=== PATIENT | female | born 1990 | race Caucasian/White ===

== ENCOUNTER 2020-05-31 17:18 | Emergency (ER) | payer MEDICAID ==
--- NOTE | 2020-05-31 18:02 | ED Physician Documentation ---
PD HPI CHEST PAIN - Stated complaint Stated Complaint: SOA - Chief complaint Chief Complaint: Resp - History obtained from History obtained from: Patient - Additional information Additional information: 30-year-old woman with history of anemia presents with shortness of breath and chest tightness that is been going on for about a week. It is exertional. Central chest tightness that is nonradiating. It is not not associate with pedal edema or calf pain. She says no possibility of . No cough. She smokes only very occasionally, maybe a cigarette a week. No personal history of heart or lung problems. Her parents are alive and well nearing 60 years old. Review of Systems Ten Systems: 10 systems reviewed and negative Cardiac: reports: Chest pain / pressure. denies: Palpitations Respiratory: reports: Dyspnea. denies: Cough PD PAST MEDICAL HISTORY - Past Medical History Past Medical History: Yes Other Past Medical History: anemia - Present Medications Home Medications: Ambulatory Orders Medication Instructions Recorded Confirmed Albuterol Sulf [Ventolin Hfa 1 - 2 puffs INH Q4HR PRN #1 inhaler 05/31/20 Inhaler] Amoxicillin 2 tab PO TID #60 capsule 05/31/20 - Allergies Allergies/Adverse Reactions: Allergies Allergy/AdvReac Type Severity Reaction Status Date / Time No Known Drug Allergies Allergy Verified 05/31/20 17:43 - Social History Smoking Status: Current some day smoker Does the pt drink ETOH?: No Does the pt have substance abuse?: No PD ED PE NORMAL - Vitals Vital signs reviewed: Yes - General General: Alert and oriented X 3, Other (Occasionally tearful but easily redirectable) - HEENT HEENT: PERRL, EOMI - Neck Neck: Supple, no meningeal sign, No bony TTP - Cardiac Cardiac: Other (Mild regular tachycardia without murmur) - Respiratory Respiratory: No respiratory distress, Clear bilaterally - Abdomen Abdomen: Soft, Non tender - Back Back: No CVA TTP, No spinal TTP - Derm Derm: Normal color, Warm and dry - Extremities Extremities: No edema, No calf tenderness / cord - Neuro Neuro: Alert and oriented X 3, Normal speech Results - Vitals Vitals: Vital Signs - 24 hr 05/31/20 17:42 Temperature 36.5 C Heart Rate 111 H Respiratory 22 Rate Blood Pressure 140/86 H O2 Saturation 100 Oxygen O2 Source Room air - EKG (time done) 1815 Rate: Rate (enter#) (118) Rhythm: Sinus tachycardia [place]: Normal Intervals: Normal MN QRS: Normal Ischemia: Non specific changes. No: ST elevation c/w ischemia, ST elevation c/w repol Computer interpretation: Agree with computer - Labs Labs: Laboratory Tests 05/31/20 05/31/20 05/31/20 18:05 18:05 18:05 WBC 10.3 RBC 4.27 Hgb 13.8 Hct 39.9 MCV 93.4 MCH 32.3 H MCHC 34.6 RDW 11.4 L Plt Count 285 MPV 10.4 Neut # (Auto) 7.7 H Lymph # (Auto) 2.1 Williams # (Auto) 0.3 Eos # (Auto) 0.1 Baso # (Auto) 0.0 Absolute Nucleated RBC 0.00 Nucleated RBC % 0.0 D-Dimer 240.4 Sodium 138 Potassium 3.1 L Chloride 103 Carbon Dioxide 22 Anion Gap 13.0 BUN 13 Creatinine 0.7 Estimated GFR (MDRD) 98 Glucose 110 H Calcium 9.4 Total Bilirubin 0.5 AST 12 ALT 17 Alkaline Phosphatase 53 Troponin I High Sens B-Natriuretic Peptide Total Protein 8.5 H Albumin 5.0 Globulin 3.5 Albumin/Globulin Ratio 1.4 Lipase 48 Serum HCG, Qual Urine Color Urine Clarity Urine pH Ur Specific [place] Urine Protein Urine Glucose (UA) Urine Ketones Urine Occult Blood Urine Nitrite Urine Bilirubin Urine Urobilinogen Ur Leukocyte Esterase Urine RBC Urine WBC Ur Squamous Epith Cells Urine Bacteria Ur Microscopic Review Urine Culture Comments Urine Opiates Screen Ur Oxycodone Screen Urine Methadone Screen Ur Propoxyphene Screen Ur Barbiturates Screen Ur Tricyclics Screen Ur Phencyclidine Scrn Ur Amphetamine Screen U Methamphetamines Scrn U Benzodiazepines Scrn Urine Cocaine Screen U Cannabinoids Screen 05/31/20 05/31/20 05/31/20 18:05 18:05 18:05 WBC RBC Hgb Hct MCV MCH MCHC RDW Plt Count MPV Neut # (Auto) Lymph # (Auto) Williams # (Auto) Eos # (Auto) Baso # (Auto) Absolute Nucleated RBC Nucleated RBC % D-Dimer Sodium Potassium Chloride Carbon Dioxide Anion Gap BUN Creatinine Estimated GFR (MDRD) Glucose Calcium Total Bilirubin AST ALT Alkaline Phosphatase Troponin I High Sens < 2.3 L B-Natriuretic Peptide 22 Total Protein Albumin Globulin Albumin/Globulin Ratio Lipase Serum HCG, Qual NEGATIVE Urine Color Urine Clarity Urine pH Ur Specific [place] Urine Protein Urine Glucose (UA) Urine Ketones Urine Occult Blood Urine Nitrite Urine Bilirubin Urine Urobilinogen Ur Leukocyte Esterase Urine RBC Urine WBC Ur Squamous Epith Cells Urine Bacteria Ur Microscopic Review Urine Culture Comments Urine Opiates Screen Ur Oxycodone Screen Urine Methadone Screen Ur Propoxyphene Screen Ur Barbiturates Screen Ur Tricyclics Screen Ur Phencyclidine Scrn Ur Amphetamine Screen U Methamphetamines Scrn U Benzodiazepines Scrn Urine Cocaine Screen U Cannabinoids Screen 05/31/20 18:05 WBC RBC Hgb Hct MCV MCH MCHC RDW Plt Count MPV Neut # (Auto) Lymph # (Auto) Williams # (Auto) Eos # (Auto) Baso # (Auto) Absolute Nucleated RBC Nucleated RBC % D-Dimer Sodium Potassium Chloride Carbon Dioxide Anion Gap BUN Creatinine Estimated GFR (MDRD) Glucose Calcium Total Bilirubin AST ALT Alkaline Phosphatase Troponin I High Sens B-Natriuretic Peptide Total Protein Albumin Globulin Albumin/Globulin Ratio Lipase Serum HCG, Qual Urine Color YELLOW Urine Clarity CLEAR Urine pH 6.0 Ur Specific [place] <=1.005 Urine Protein NEGATIVE Urine Glucose (UA) NEGATIVE Urine Ketones NEGATIVE Urine Occult Blood TRACE-INTA Urine Nitrite NEGATIVE Urine Bilirubin NEGATIVE Urine Urobilinogen 0.2 (NORMAL) Ur Leukocyte Esterase SMALL H Urine RBC 0-5 Urine WBC 6-10 H Ur Squamous Epith Cells RARE Squamous Urine Bacteria Rare Ur Microscopic Review INDICATED Urine Culture Comments INDICATED Urine Opiates Screen NEGATIVE Ur Oxycodone Screen NEGATIVE Urine Methadone Screen NEGATIVE Ur Propoxyphene Screen NEGATIVE Ur Barbiturates Screen NEGATIVE Ur Tricyclics Screen NEGATIVE Ur Phencyclidine Scrn NEGATIVE Ur Amphetamine Screen NEGATIVE U Methamphetamines Scrn NEGATIVE U Benzodiazepines Scrn NEGATIVE Urine Cocaine Screen NEGATIVE U Cannabinoids Screen NEGATIVE PD MEDICAL DECISION MAKING - ED course ED course: 30-year-old woman presents with about a weeks worth of shortness of breath and chest pain. Examination is unremarkable. Troponin and D-dimer negative. EKG nonischemic. She is a little anxious. Chest x-ray showing mild right lower lung pulmonary radiopacities. Will treat as infection. Departure - Departure Disposition: 01 Home, Self Care Clinical Impression: Chest pain Qualifiers: Chest pain type: unspecified Qualified Code(s): R07.9 - Chest pain, unspecified Pneumonia Qualifiers: Pneumonia type: due to unspecified organism Laterality: right Lung location: lower lobe of lung Qualified Code(s): J18.9 - Pneumonia, unspecified organism Condition: Good Record reviewed to determine appropriate education?: Yes Instructions: Pneumonia Dc Prescriptions: Albuterol Sulf [Ventolin Hfa Inhaler] 1 - 2 puffs INH Q4HR PRN #1 inhaler PRN Reason: Shortness Of Air/Wheezing Amoxicillin 2 tab PO TID #60 capsule Comments: You have a small right-sided pneumonia on the x-ray. For that we are prescribing some antibiotics. Return if worsening or if new symptoms develop. You should probably have a repeat chest x-ray with your primary care physician in maybe 4 to 6 weeks to make sure that the pneumonia has completely resolved.
[2020-05-31 18:21] LABS: BASOPHILS % (AUTO) 0.3 %; EOSINOPHILS # (AUTO) 0.1 10^3/uL (0.0-0.7); EOSINOPHILS % (AUTO) 0.8 %; HGB - HEMOGLOBIN 13.8 g/dL (12.0-16.0); LYMPHOCYTES # (AUTO) 2.1 10^3/uL (1.5-3.5); LYMPHOCYTES % (AUTO) 20.8 %; MEAN CORPUSCULAR HEMOGLOBIN 32.3 pg (27.0-31.0); MEAN CORPUSCULAR HGB CONC 34.6 g/dL (32.0-36.0); MEAN CORPUSCULAR VOLUME 93.4 fL (81.0-99.0); MEAN PLATELET VOLUME 10.4 fL (7.9-10.8); MONOCYTES # (AUTO) 0.3 10^3/uL (0.0-1.0); NEUTROPHILS # (AUTO) 7.7 10^3/uL (1.5-6.6); NEUTROPHILS % (AUTO) 74.8 %; PLT - PLATELET COUNT 285 10^3/uL (130-450); RED BLOOD COUNT 4.27 10^6/uL (4.20-5.40); RED CELL DISTRIBUTION WIDTH 11.4 % (12.0-15.0); WHITE BLOOD COUNT 10.3 x10^3/uL (4.8-10.8)
[2020-05-31 18:22] LABS: MUDS CUTOFF CONCENTRATIONS CUTOFF CONC BELOW:
[2020-05-31 18:25] LABS: BILIRUBIN,URINE NEGATIVE (NEGATIVE); GLUCOSE, URINE (UA) NEGATIVE (NEGATIVE); KETONES,URINE (UA) NEGATIVE (NEGATIVE); LEUKOCYTE ESTERASE, URINE SMALL (NEGATIVE); NITRITE,URINE NEGATIVE (NEGATIVE); OCCULT BLOOD,URINE TRACE-INTA (NEGATIVE); PROTEIN,URINE NEGATIVE (NEGATIVE); UROBILINOGEN,URINE 0.2 (NORMAL) E.U./dL (NORMAL)
[2020-05-31 18:36] LABS: BACTERIA,URINE Rare /HPF (None Seen); CLARITY,URINE CLEAR (CLEAR); RBC,URINE 0-5 /HPF (0-5); SQUAMOUS EPITHELIAL CELL,UR RARE Squamous (<= Few)
[2020-05-31 18:38] LABS: ALBUMIN/GLOBULIN RATIO 1.4 (1.0-2.2); BILIRUBIN,TOTAL 0.5 mg/dL (0.2-1.0); CALCIUM 9.4 mg/dL (8.5-10.3); CREATININE 0.7 mg/dL (0.4-1.0); TOTAL PROTEIN 8.5 g/dL (6.7-8.2)
[2020-05-31 18:43] LABS: AMPHETAMINE SCREEN,URINE NEGATIVE (NEGATIVE); BENZODIAZEPINES SCREEN, URINE NEGATIVE (NEGATIVE); COCAINE SCREEN URINE NEGATIVE (NEGATIVE); METHADONE SCREEN, URINE NEGATIVE (NEGATIVE); METHAMPHETAMINES SCREEN, URINE NEGATIVE (NEGATIVE); OPIATE SCREEN, URINE NEGATIVE (NEGATIVE); OXYCODONE SCREEN, URINE NEGATIVE (NEGATIVE); PROPOXYPHENE SCREEN, URINE NEGATIVE (NEGATIVE); TRICYCLIC ANTIDEPRESSANT,URINE NEGATIVE (NEGATIVE)
[2020-05-31 18:59] LABS: HCG,QUALITATIVE BLOOD NEGATIVE
--- NOTE | 2020-05-31 19:10 | XRAY Report ---
PROCEDURE: Chest 2 View X-Ray INDICATIONS: chest pain TECHNIQUE: 2 view(s) of the chest. COMPARISON: None. FINDINGS: Surgical changes and devices: None. Lungs and pleura: Trace airspace opacities are present in the medial right lung base. The lungs are o therwise clear. No pleural effusion or pneumothorax. Mediastinum: Mediastinal contours are normal. Heart size is normal. Bones and chest wall: No suspicious bony abnormalities. Soft tissues appear unremarkable. IMPRESSION: Mild right lower lung pulmonary radiopacities. Differential considerations include aspir ation and infection. Short interval follow-up recommended to ensure resolution of this finding and ex clude underlying pulmonary pathology. Reviewed by: Marina Rodriguez MD on 05/31/2020 7:09 PM PST Approved by: Marina Rodriguez MD on 05/31/2020 7:09 PM PST Station ID: [id number]
[2020-05-31 19:32] VITALS: BP 119/74
== END 2020-05-31 19:34 | disposition home or self-care (01) ==
LOC: ED 17:18
DX: J18.9 Pneumonia, unspecified organism (principal); R07.89 Other chest pain; R00.0 Tachycardia, unspecified; F17.210 Nicotine dependence, cigarettes, uncomplicated
CPT/HCPCS: 36415; 80053; 80306; 81001; 81003; 83690; 83880; 84484; 84702; 84703; 85025; 85379; 87086; 93005; 99284; 99285

== ENCOUNTER 2020-10-07 14:05 | Emergency (ER) | payer MEDICAID ==
--- OUTSIDE RECORDS SUMMARY | 2020-10-07 14:09 | EXTERNAL MEDICAL SUMMARY RPT | Continuity of Care Document ---
:1990 Demographics Phone Unavailable Preferred Language Unknown Marital Status Unknown Faith Affiliation Unknown Race Unknown Ethnic Group Unknown Author Organization [facility] Address [address] [place] [address] Phone Social History date description facility [phone]
--- OUTSIDE RECORDS SUMMARY | 2020-10-07 14:34 | EXTERNAL MEDICAL SUMMARY RPT | Continuity of Care Document ---
:1990 Demographics Phone Unavailable Preferred Language Unknown Marital Status Unknown Christianity Affiliation Unknown Race Unknown Ethnic Group Unknown Author Organization [facility] Address [address] [place] [address] Phone Social History date description facility [phone]
[2020-10-07] MEDS ORDERED: LORazepam 1 MG TABLET PO STA (16:14)
--- NOTE | 2020-10-07 16:17 | ED Physician Documentation ---
History of Present Illness - Stated complaint Stated Complaint: CHEST PX/SOA/ANXIETY - Chief complaint Chief Complaint: Resp - Additonal information Additional information: 30-year-old female presents emergency department for evaluation of right-sided chest pain. She reports that every time she breathes and she feels a stabbing pain in her right chest. She states that this pain is causing her to be anxious and worried. She is concerned because in May 2020 she was diagnosed with pneumonia in the right lung and ever since then does not feel like her lung has been normal. In point she denies any cough or fevers. No congestion. She is a non-smoker. No history of diabetes or hypertension. Following her May ER visit she was seen at an ER in [place] for right-sided chest pain and was told that it was due to anxiety and she was prescribed a limited amount of Ativan. 3 days ago she was working a lot outside and with her kids and that is when this chest pain began to get worse she wonders if she may have overdid it though she denies any inciting events. Pt has Mirena IUD in place, no unilateral leg swelling, calf pain, hx of DVT or cancer. Review of Systems Constitutional: denies: Fever, Chills Eyes: reports: Reviewed and negative Ears: reports: Reviewed and negative Nose: reports: Reviewed and negative Throat: reports: Reviewed and negative Cardiac: reports: Chest pain / pressure, Palpitations. denies: Pedal edema, Calf pain Respiratory: denies: Dyspnea, Cough GI: reports: Reviewed and negative : reports: Reviewed and negative Skin: reports: Reviewed and negative PD PAST MEDICAL HISTORY - Past Medical History Past Medical History: Yes Psych: Anxiety - Past Surgical History Past Surgical History: Yes - Present Medications Home Medications: Ambulatory Orders Medication Instructions Recorded Confirmed Albuterol Sulf [Ventolin Hfa 1 - 2 puffs INH Q4HR PRN #1 inhaler 05/31/20 10/07/20 Inhaler] Azithromycin [Zithromax] 0 mg PO DAILY #6 tablet 10/07/20 LORazepam [Ativan] 1 tab Q6H PRN 10/07/20 10/07/20 - Allergies Allergies/Adverse Reactions: Allergies Allergy/AdvReac Type Severity Reaction Status Date / Time No Known Drug Allergies Allergy Verified 10/07/20 14:24 - Social History Does the pt smoke?: No Smoking Status: Never smoker Does the pt drink ETOH?: No Does the pt have substance abuse?: No PD ED PE EXPANDED - General General: Alert, Anxious - Cardiac Cardiac: Tachy, Radial strong equal, Cap refill < 2 sec. No: Murmur Present - Respiratory Respiratory: Clear to ausultation yaya. No: Distress, Labored - Abdomen Abdomen: Normal Bowel sounds. No: Tender to palpation - Neuro Neuro: Alert and Oriented X 3, CNII-XII intact - GCS Eye Opening: Spontaneous Motor: Obeys Commands Verbal: Oriented Total: 15 Results - Vitals Vitals: Vital Signs - 24 hr 10/07/20 14:24 Temperature 36.6 C Heart Rate 125 H Respiratory 16 Rate Blood Pressure 149/98 H O2 Saturation 100 Oxygen O2 Source Room air - EKG (time done) 1429 Rate: Rate (enter#) (92) Rhythm: NSR Felt: Normal Intervals: No: Normal MO (short MO) Ischemia: ST elevation c/w repol Compare to prior EKG: Unchanged from prior EKG Computer interpretation: Agree with computer - Labs Labs: Laboratory Tests 10/07/20 10/07/20 10/07/20 16:15 16:15 16:15 WBC 12.9 H RBC 4.45 Hgb 13.7 Hct 41.9 MCV 94.2 MCH 30.8 MCHC 32.7 RDW 11.6 L Plt Count 327 MPV 10.1 Neut # (Auto) 11.1 H Lymph # (Auto) 1.3 L Esmeralda # (Auto) 0.3 Eos # (Auto) 0.1 Baso # (Auto) 0.1 Absolute Nucleated RBC 0.00 Nucleated RBC % 0.0 D-Dimer Sodium 138 Potassium 3.6 Chloride 103 Carbon Dioxide 22 Anion Gap 13.0 BUN 10 Creatinine 0.7 Estimated GFR (MDRD) 98 Glucose 103 H Calcium 9.6 Troponin I High Sens < 2.3 L 10/07/20 16:15 WBC RBC Hgb Hct MCV MCH MCHC RDW Plt Count MPV Neut # (Auto) Lymph # (Auto) Esmeralda # (Auto) Eos # (Auto) Baso # (Auto) Absolute Nucleated RBC Nucleated RBC % D-Dimer 205.3 Sodium Potassium Chloride Carbon Dioxide Anion Gap BUN Creatinine Estimated GFR (MDRD) Glucose Calcium Troponin I High Sens - Rads (name of study) CXR Radiology: Final report received (Subtle patchy left superior perihilar opacity which may represent atelectasis versus possible early airspace disease/pneumonia. No focal consolidations.) PD MEDICAL DECISION MAKING - ED course Complexity details: reviewed results, re-evaluated patient, considered differential, d/w patient ED course: 30-year-old female presents emergency department for evaluation of reported right-sided chest pain. She states that she has had this pain intermittently since she was diagnosed with pneumonia in the right lung in May 2020. Follow-up chest x-ray in July showed no acute findings. However she states that it hurts especially when she takes a deep breath. She denies any cough or fever she is also exceedingly anxious and has been taking Ativan to help with that. On exam she has unremarkable cardiopulmonary auscultation though she is somewhat tachycardic. Room air saturations are 99%. EKG shows mild tachypnea tachycardia but no ischemic findings. High-sensitivity troponin is negative. A D-dimer is negative. Chest x-ray however does suggest a very subtle left upper lobe opacity perhaps an early pneumonia. This finding was discussed with the patient. Though she has no cough or fever radiology recommendation is to treat this opacity and follow-up with repeat imaging in 2 to 3 weeks. I discussed with the patient that in the absence of cough or fever pneumonia is less likely. Also discussed that it would be very atypical for young lady with out any pertinent past medical history to have recurrent pneumonia. However we will prescribe her a Z-Sonny. She will follow up with a primary care provider in [place]. I have advised that she may benefit from referral to a garment presser for reevaluation. emergent return precautions discussed Departure - Departure Disposition: 01 Home, Self Care Clinical Impression: Chest pain Qualifiers: Chest pain type: unspecified Qualified Code(s): R07.9 - Chest pain, unspecified Pneumonia Qualifiers: Pneumonia type: due to unspecified organism Laterality: left Lung location: upper lobe of lung Qualified Code(s): J18.9 - Pneumonia, unspecified organism Condition: Stable Record reviewed to determine appropriate education?: Yes Follow-Up: Kannan Thomas MD [Primary Care Provider] - Prescriptions: Azithromycin [Zithromax] 0 mg PO DAILY #6 tablet Comments: Alondra as we discussed the chest x-ray suggest that you may have a very very subtle pneumonia in your left upper lung. For this reason we are prescribing you an antibiotic called azithromycin. Please have it filled at the pharmacy and take as directed. However your other screening labs EKG are all essentially within normal limits. There may be some underlying anxiety affecting your chest pain. It would be very atypical for a young otherwise healthy woman to have a recurrent pneumonia. For this reason I would like you to follow-up with your primary care doctor. You may benefit from referral to a garment presser.
[2020-10-07 16:20] LABS: BASOPHILS # (AUTO) 0.1 10^3/uL (0.0-0.1); BASOPHILS % (AUTO) 0.5 %; EOSINOPHILS # (AUTO) 0.1 10^3/uL (0.0-0.7); EOSINOPHILS % (AUTO) 0.7 %; HCT - HEMATOCRIT 41.9 % (37.0-47.0); HGB - HEMOGLOBIN 13.7 g/dL (12.0-16.0); LYMPHOCYTES # (AUTO) 1.3 10^3/uL (1.5-3.5); LYMPHOCYTES % (AUTO) 10.2 %; MEAN CORPUSCULAR HEMOGLOBIN 30.8 pg (27.0-31.0); MEAN CORPUSCULAR HGB CONC 32.7 g/dL (32.0-36.0); MEAN CORPUSCULAR VOLUME 94.2 fL (81.0-99.0); MEAN PLATELET VOLUME 10.1 fL (7.9-10.8); MONOCYTES # (AUTO) 0.3 10^3/uL (0.0-1.0); MONOCYTES % (AUTO) 2.6 %; NEUTROPHILS # (AUTO) 11.1 10^3/uL (1.5-6.6); NEUTROPHILS % (AUTO) 85.7 %; PLT - PLATELET COUNT 327 10^3/uL (130-450); RED BLOOD COUNT 4.45 10^6/uL (4.20-5.40); RED CELL DISTRIBUTION WIDTH 11.6 % (12.0-15.0); WHITE BLOOD COUNT 12.9 x10^3/uL (4.8-10.8)
--- NOTE | 2020-10-07 16:21 | XRAY Report ---
PROCEDURE: Chest 1 View X-Ray INDICATIONS: chest pain TECHNIQUE: One view of the chest was acquired. COMPARISON: 05/31/2020 FINDINGS: Surgical changes and devices: None. Lungs and pleura: Subtle, hazy opacity in the left superior perihilar region. No focal consolidation . No pleural effusions or pneumothorax. Right lung appears clear. Mediastinum: Mediastinal contours appear stable. Heart size is normal. Bones and chest wall: No suspicious bony lesions. Overlying soft tissues appear unremarkable. IMPRESSION: Subtle, patchy left superior perihilar opacity which may represent atelectasis versus possible early airspace disease/pneumonia. No focal consolidations. Recommend follow-up chest radiograph 4-6 weeks after treatment to document return to baseline exam. Reviewed by: Agus Hameed MD on 10/07/2020 4:20 PM PDT Approved by: Agus Hameed MD on 10/07/2020 4:20 PM PDT Station ID: [id number]
[2020-10-07 16:40] LABS: CALCIUM 9.6 mg/dL (8.5-10.3); CREATININE 0.7 mg/dL (0.4-1.0); POTASSIUM 3.6 mmol/L (3.5-5.0)
[2020-10-07 17:34] VITALS: BP 132/78
== END 2020-10-07 17:26 | disposition home or self-care (01) ==
LOC: ED 14:05
DX: J18.9 Pneumonia, unspecified organism (principal); R07.9 Chest pain, unspecified; F41.9 Anxiety disorder, unspecified
CPT/HCPCS: 36415; 71045; 80048; 84484; 85025; 85379; 93005; 99284; J8499

== ENCOUNTER 2021-03-02 10:24 | Emergency (ER) | payer MEDICAID ==
--- NOTE | 2021-03-02 12:08 | XRAY Report ---
PROCEDURE: Chest 2 View X-Ray INDICATIONS: CP/dyspnea TECHNIQUE: 2 view(s) of the chest. COMPARISON: None. FINDINGS: Surgical changes and devices: None. Lungs and pleura: No pleural effusions or pneumothorax. Lungs are clear. Mediastinum: Mediastinal contours are normal. Heart size is normal. Bones and chest wall: No suspicious bony abnormalities. Soft tissues appear unremarkable. IMPRESSION: No acute cardiopulmonary process demonstrated radiographically. Reviewed by: Román Marcelo MD on 03/02/2021 12:07 PM PDT Approved by: Román Marcelo MD on 03/02/2021 12:07 PM PDT Station ID: [id number]
[2021-03-02 12:13] VITALS: BP 131/88
[2021-03-02 12:29] LABS: BASOPHILS % (AUTO) 0.5 %; EOSINOPHILS # (AUTO) 0.1 10^3/uL (0.0-0.7); EOSINOPHILS % (AUTO) 1.3 %; HCT - HEMATOCRIT 41.8 % (37.0-47.0); HGB - HEMOGLOBIN 13.7 g/dL (12.0-16.0); LYMPHOCYTES # (AUTO) 1.7 10^3/uL (1.5-3.5); LYMPHOCYTES % (AUTO) 28.1 %; MEAN CORPUSCULAR HEMOGLOBIN 31.1 pg (27.0-31.0); MEAN CORPUSCULAR HGB CONC 32.8 g/dL (32.0-36.0); MEAN PLATELET VOLUME 10.6 fL (7.9-10.8); MONOCYTES # (AUTO) 0.3 10^3/uL (0.0-1.0); MONOCYTES % (AUTO) 4.6 %; NEUTROPHILS % (AUTO) 65.3 %; PLT - PLATELET COUNT 273 10^3/uL (130-450); RED CELL DISTRIBUTION WIDTH 11.2 % (12.0-15.0); WHITE BLOOD COUNT 6.1 x10^3/uL (4.8-10.8)
[2021-03-02 12:56] LABS: ALBUMIN 4.8 g/dL (3.2-5.5); ALBUMIN/GLOBULIN RATIO 1.3 (1.0-2.2); ALKALINE PHOSPHATASE 57 IU/L (42-121); ALT ALANINE AMINOTRANSFERASE 13 IU/L (10-60); AST ASPARTATE AMINOTRANSFERASE < 10 IU/L (10-42); BILIRUBIN,TOTAL 1.2 mg/dL (0.2-1.0); BUN - BLOOD UREA NITROGEN 9 mg/dL (6-20); CALCIUM 9.2 mg/dL (8.5-10.3); CARBON DIOXIDE - CO2 25 mmol/L (21-32); CHLORIDE 103 mmol/L (101-111); CREATININE 0.7 mg/dL (0.4-1.0); GFR - MDRD 98 (>89); GLUCOSE 96 mg/dL (70-100); LIPASE 45 U/L (22-51); POTASSIUM 3.7 mmol/L (3.5-5.0); SODIUM 138 mmol/L (135-145); TOTAL PROTEIN 8.4 g/dL (6.7-8.2)
--- NOTE | 2021-03-02 13:15 | ED Physician Documentation ---
PD HPI CHEST PAIN - Stated complaint Stated Complaint: LUNG PAIN - Chief complaint Chief Complaint: Resp - History obtained from History obtained from: Patient - Additional information Additional information: Pt has history of severe intermittent anxiety and has had "esophagus pain" since she has pneumonia in May 2020. She states since then she periodically feels like she can't breathe and that her "esophagus" always hurts. She states it is worse w/ talking or singing but not with eating. She takes ibuprofen periodically for the pain and that seems to help. She does take periodic ativan for anxiety, but has used only 9 tablets since December. She tried to be on a SSRI but had too many side effects. She is working w/ her PCP to help control her anxiety and is aware that her anxiety may be contributing to her symptoms. She has not had any cough or fever, no palpitations, diaphoresis, wheezing, abd pain, n/v/d, reflux sx, or weakness. Review of Systems Constitutional: reports: Reviewed and negative Eyes: reports: Reviewed and negative Ears: reports: Reviewed and negative Nose: reports: Reviewed and negative Throat: reports: Reviewed and negative Cardiac: reports: Chest pain / pressure Respiratory: reports: Reviewed and negative GI: reports: Reviewed and negative : reports: Reviewed and negative Musculoskeletal: reports: Reviewed and negative Neurologic: reports: Reviewed and negative Psychiatric: reports: Anxiety, Reviewed and negative. denies: Depressed, Suici kashif, Homicidal, Hallucinations, Delusions, Insomnia, Other Endocrine: reports: Reviewed and negative PD PAST MEDICAL HISTORY - Past Medical History Psych: Anxiety - Past Surgical History Past Surgical History: Yes - Present Medications Home Medications: Ambulatory Orders Medication Instructions Recorded Confirmed Albuterol Sulf [Ventolin Hfa 1 - 2 puffs INH Q4HR PRN #1 inhaler 05/31/20 10/07/20 Inhaler] Azithromycin [Zithromax] 0 mg PO DAILY #6 tablet 10/07/20 LORazepam [Ativan] 1 tab Q6H PRN 10/07/20 10/07/20 - Allergies Allergies/Adverse Reactions: Allergies Allergy/AdvReac Type Severity Reaction Status Date / Time No Known Drug Allergies Allergy Verified 03/02/21 10:36 - Social History Does the pt smoke?: No Smoking Status: Never smoker Does the pt drink ETOH?: No Does the pt have substance abuse?: No PD ED PE NORMAL - Vitals Vital signs reviewed: Yes - General General: Alert and oriented X 3, No acute distress, Well developed/nourished - HEENT HEENT: Atraumatic, EOMI - Neck Neck: Supple, no meningeal sign, No adenopathy, Thyroid normal, No JVD - Cardiac Cardiac: RRR, No murmur, No gallop, No rub, Strong equal pulses - Respiratory Respiratory: No respiratory distress, Clear bilaterally - Abdomen Abdomen: Normal bowel sounds, Soft, Non tender, Non distended - Derm Derm: Normal color, Warm and dry, No rash - Extremities Extremities: No deformity, No edema - Neuro Neuro: Alert and oriented X 3, No motor deficit, No sensory deficit, Normal speech Eye Opening: Spontaneous Motor: Obeys Commands Verbal: Oriented GCS Score: 15 - Psych Psych: Normal mood, Normal affect Results - Vitals Vitals: Vital Signs - 24 hr 03/02/21 03/02/21 10:33 12:12 Temperature 36.4 C L 36.6 C Heart Rate 89 91 Respiratory 16 16 Rate Blood Pressure 131/85 H 131/88 H O2 Saturation 100 100 Oxygen O2 Source Room air - Labs Labs: Laboratory Tests 03/02/21 03/02/21 03/02/21 12:25 12:25 12:25 WBC 6.1 RBC 4.40 Hgb 13.7 Hct 41.8 MCV 95.0 MCH 31.1 H MCHC 32.8 RDW 11.2 L Plt Count 273 MPV 10.6 Neut # (Auto) 4.0 Lymph # (Auto) 1.7 Moody # (Auto) 0.3 Eos # (Auto) 0.1 Baso # (Auto) 0.0 Absolute Nucleated RBC 0.00 Nucleated RBC % 0.0 Sodium 138 Potassium 3.7 Chloride 103 Carbon Dioxide 25 Anion Gap 10.0 BUN 9 Creatinine 0.7 Estimated GFR (MDRD) 98 Glucose 96 Calcium 9.2 Total Bilirubin 1.2 H AST < 10 L ALT 13 Alkaline Phosphatase 57 Troponin I High Sens < 2.3 L Total Protein 8.4 H Albumin 4.8 Globulin 3.7 Albumin/Globulin Ratio 1.3 Lipase 45 PD MEDICAL DECISION MAKING - ED course Complexity details: reviewed old records, reviewed results, re-evaluated patient, considered differential, d/w patient ED course: Pt presented w/ intermittent long standing chest/lung/"esophagus" pain for which she has been seen several times in the past. Differentials include anxiety, p na, pe, ptx, acs, costochondritis, reflux, msk. She did have pna in May 2020 but reassuring xrays since then. Imaging and labs today and reassuring and not suggestive of infection or other acute lung issue. She reports esophageal pain but she has no reflux or difficult w/ PO intake and that does get better w/ ibuprofen or ativan. I have low suspicion for PE as PERC negative, Wells' negative. Her EKG is non ischemic and her trop is negative. I suspect this is primarily anxiety and provided reassurance to her and discussed supportive measures to help with her sx when she feels these episodes. She will continue fup w/ her PCP for anxiety, consider referral to pulm if sx persist. Departure - Departure Disposition: 01 Home, Self Care Clinical Impression: Anxiety, Atypical chest pain Condition: Good Instructions: ED Chest Pain NonCardiac Comments: Please follow up with your primary doctor to continue to discuss anxiety treatment. Consider counseling and mindfulness exercises. Consider referral to animation director if your symptoms persist.
== END 2021-03-02 13:22 | disposition home or self-care (01) ==
LOC: ED 10:24
DX: F41.9 Anxiety disorder, unspecified (principal); R07.89 Other chest pain
CPT/HCPCS: 36415; 80053; 83690; 84484; 85025; 93005; 99284

== ENCOUNTER 2021-04-12 08:00 | Outpatient (CLI) | payer MEDICAID | END 2021-04-12 23:59 | disposition home or self-care (01) | LOC: LAB.N 08:00 | PROVIDERS: ATTEND Family Medicine | DX: N39.0 Urinary tract infection, site not specified (principal) | CPT/HCPCS: 87086 ==